=== PATIENT | female | born 1960 | race Caucasian/White ===

== ENCOUNTER → 2017-02-16 | Outpatient (CLI) | payer OTHER ==
[~2017-02-16] MED LIST: CIPRO250 MG PO; FLAGYL500 MG PO; MELOXICAM15 MG PO; NORCO 5-325 TA1 EACH PO; ZESTRIL40 MG PO
[2017-02-16 13:06] LABS: HEMOGLOBIN A1c 5.2 % (4.8-5.6)
== END | disposition home or self-care (01) ==
LOC: LAB 11:31
PROVIDERS: Family Medicine
DX: R73.9 Hyperglycemia, unspecified (principal)

== ENCOUNTER 2017-05-23 11:16 | Emergency (ER) | payer OTHER ==
[~2017-05-23] VITALS: Ht 165.1 cm; Wt 90.7 kg
[2017-05-23] MEDS ORDERED: CYCLOBENZAPRINE10 MG PO (13:26)
[2017-05-23] MEDS ORDERED: PREDNISONE10 MG PO (13:26)
== END 2017-05-23 13:57 | disposition home or self-care (01) ==
LOC: ED 11:16
DX: M54.12 Radiculopathy, cervical region (principal); F17.200 Nicotine dependence, unspecified, uncomplicated; Z88.0 Allergy status to penicillin; Z88.1 Allergy status to other antibiotic agents; Z88.8 Allergy status to other drugs, medicaments and biological substances; Z79.899 Other long term (current) drug therapy

== ENCOUNTER → 2017-12-14 | Outpatient (CLI) | payer OTHER ==
[~2017-12-14] MED LIST changes: +CYCLOBENZAPRINE10 MG PO; +PREDNISONE10 MG PO
== END ==
LOC: LAB 11:46
PROVIDERS: Family Medicine
DX: D75.89 Other specified diseases of blood and blood-forming organs (principal)

== ENCOUNTER 2018-12-15 10:31 | Emergency (ER) | payer OTHER ==
[2018-12-15] MEDS ORDERED: Motrin,Rufen800 MG PO (11:48)
[2018-12-15] MEDS ORDERED: NORCO 5-325 TA1 EACH PO (11:48)
== END 2018-12-15 11:52 | disposition home or self-care (01) ==
LOC: ED 10:31
DX: S80.12XA Contusion of left lower leg, initial encounter (principal); I10 Essential (primary) hypertension; J45.909 Unspecified asthma, uncomplicated; F17.200 Nicotine dependence, unspecified, uncomplicated; Z88.0 Allergy status to penicillin; Z88.1 Allergy status to other antibiotic agents; Z88.8 Allergy status to other drugs, medicaments and biological substances; Z79.899 Other long term (current) drug therapy; W01.0XXA Fall on same level from slipping, tripping and stumbling without subsequent striking against object, initial encounter; Y93.01 Activity, walking, marching and hiking; Y92.89 Other specified places as the place of occurrence of the external cause; Y99.8 Other external cause status